=== PATIENT | female | born 1940 | race Caucasian/White ===

== ENCOUNTER 2016-11-01 13:29 | Emergency (ER) | payer MEDICARE, MEDICAID ==
[2016-11-01] MEDS ORDERED: ASPIRIN 81 MG CHEWABLE TABLET PO ONE (14:05)
--- NOTE | 2016-11-01 14:07 | Emergency Department Record ---
History of Present Illness - General Chief Complaint: Chest Pain Stated Complaint: CHEST PAIN WITH DEEP BREATH Time Seen by Provider: 11/01/16 14:04 Source: Patient Mode of Arrival: Ambulatory Limitations: No limitations - History of Present Illness Initial Comments: 76 yo female presents to ED with a CC of chest pain with deep inspiration. Patient reports undergoing pericardial window for pericardial effusion 6-7 weeks ago, denies fevers, chills, or cough symptoms. Patient reports she went to her chiropractor for her symptoms which has not helped. Patient denies h/o DVT, denies leg swelling or calf pain symptoms. MD Complaint: Chest pain Onset/Timin -: Days(s) Onset: Other (deep inspiration) Pain Location: Substernal Pain Radiation: None Severity: Moderate Quality: Other Consistency: Intermittent Worsens With: Inspiration Context: Recent surgery - Related Data Home Medications Medication Instructions Recorded Confirmed Last Taken Fesoterodine Fumarate [Toviaz] 8 mg PO DAILY 08/07/14 09/16/15 09/16/15 Mirabegron [Myrbetriq] 25 mg PO DAILY 08/07/14 09/16/15 09/16/15 Omeprazole 20 mg PO DAILY 08/07/14 09/16/15 09/16/15 Alirocumab [Praluent Pen] 75 mg SQ pen.[email or web address] 06/05/16 Unknown Lisinopril 5 mg PO tab 06/21/16 Unknown Metoprolol Succinate [Toprol Xl] 25 mg PO tab 06/21/16 Unknown Temazepam 7.5 mg PO cap 06/21/16 Unknown Previous Rx's Medication Instructions Recorded Ibuprofen [Motrin 400Mg] 400 mg PO Q8H PRN #14 tablet 09/16/15 Allergies Allergy/AdvReac Type Severity Reaction Status Date / Time adhesive Allergy Intermediate RASH Unverified 06/21/16 13:57 Travel Screening - Travel/Exposure Within Last 30 Days Have you traveled within the last 30 days?: No - Travel/Exposure Within Last Year Have you traveled outside the [place] in the last year?: No - Additonal Travel Details Have you been exposed to anyone with a communicable illness?: No - Travel Symptoms Symptom Screening: None Review of Systems Constitutional: Denies: Chills, Fever, Malaise, Night sweats Eyes: Denies: Eye discharge, Eye pain ENT: Denies: Congestion, Ear pain, Epistaxis Respiratory: Denies: Cough, Dyspnea Cardiovascular: Reports: Chest pain. Denies: Dyspnea on exertion Endocrine: Denies: Fatigue, Heat or cold intolerance Gastrointestinal: Denies: Abdominal pain, Nausea, Vomiting Genitourinary: Denies: Dysuria, Frequency Musculoskeletal: Denies: Arthralgia, Back pain, Gout, Joint swelling Skin: Denies: Bruising, Change in color Neurological: Denies: Abnormal gait, Confusion, Headache, Seizure Psychiatric: Denies: Anxiety Hematological/Lymphatic: Denies: Anemia, Blood Clots Past Medical History - SOCIAL HISTORY Smoking Status: Never smoker Alcohol Use: None Drug Use: None - RESPIRATORY Hx Respiratory Disorders: Yes Hx Dyspnea: Yes (occ. with activity) - CARDIOVASCULAR Hx Cardio Disorders: Yes Comment:: defibulator is not hooked up, EF was <10. Now 69 - NEURO Hx Neuro Disorders: No - GI Hx GI Disorders: No Hx Wt Loss/Wt Gain: Yes Comment:: -15# over the past week - Hx Genitourinary Disorders: Yes Hx Bladder Problem: Yes (Bladder slyng and incont.) - ENDOCRINE Hx Endocrine Disorders: No - MUSCULOSKELETAL Hx Musculoskeletal Disorders: Yes Hx Arthritis: Yes - PSYCH Hx Psych Problems: Yes Hx Depression: Yes - HEMATOLOGY/ONCOLOGY Hx Hematology/Oncology Disorders: No Family Medical History Any Significant Family History?: No Family Hx Comment (NOT TO BE USED IN PLACE OF ITEMS BELOW): mom had gluacoma Physical Exam - General General Appearance: Alert, Oriented x3, Cooperative, Mild distress Limitations: No limitations - Head Head exam: Atraumatic, Normocephalic, Normal inspection Head exam detail: negative: Abrasion, Contusion, Ayala's sign, General tenderness, Hematoma, Laceration - Eye Eye exam: Normal appearance. negative: Conjunctival injection, Periorbital swelling, Periorbital tenderness, Scleral icterus - ENT Ear exam: negative: Auricular hematoma, Auricular trauma Nasal Exam: negative: Active bleeding, Discharge, Dried blood, Foreign body Mouth exam: negative: Drooling, Laceration, Muffled voice, Tongue elevation - Neck Neck exam: Normal inspection. negative: Meningismus, Tenderness - Respiratory Respiratory exam: Normal lung sounds bilaterally. negative: Rales, Respiratory distress, Rhonchi, Stridor, Wheezes - Cardiovascular Cardiovascular Exam: Normal rhythm, Normal heart sounds, Tachycardia - GI/Abdominal GI/Abdominal exam: Soft. negative: Rebound, Rigid, Tenderness - Rectal Rectal exam: Deferred - exam: Deferred - Extremities Extremities exam: Normal inspection. negative: Calf tenderness, Pedal edema, Tenderness - Back Back exam: Denies: CVA tenderness (R), CVA tenderness (L) - Neurological Neurological exam: Alert, Normal gait, Oriented X3 - Psychiatric Psychiatric exam: Normal affect, Normal mood - Skin Skin exam: Normal color. negative: Abrasion Type of lesion: negative: abrasion Course Vital Signs 11/01/16 13:38 Temperature 97.9 F Pulse Rate 118 H Respiratory 18 Rate Blood Pressure 159/76 Pulse Ox 95 - Reevaluation(s) Reevaluation #1: 11/01/16 14:05 EKG: Tachycardic 118, ? Paced vs. LBBB Legft axis deviation No Sgarbossa criteria are present. Appears different from 06/12/15 11/01/16 14:07 Reevaluation #2: 11/01/16 14:10 Bedside US performed, no clear image is available indicating pericardial fluid re-accumulation. Reevaluation #3: 11/01/16 15:07 Labs reviewed, WBC 14.8, labs are otherwise grossly unremarkable for an acute process. Patient is in CT currently to eclude PE/pericardial effusion. Reevaluation #4: 11/01/16 15:46 CTA Chest: No PE, No dissection, no pulmonary process. 1.0 cm anterior pericardial effusion. Reevaluation #5: 11/01/16 15:56 Patient was updated on all results, pulse down to 108 from 118-120. Case was discussed with Dr. Hannah, will accept transfer for cardiac evaluation. Medical Decision Making - Lab Data Result diagrams: 11/01/16 14:20 11/01/16 14:20 Disposition Disposition: Transfer Clinical Impression: Pericardial effusion Disposition: Acute Care Hospital Transfer Transfer To: [facility] Reason For Transfer: Pericardial Effusion Accepting Physician: Brielle Time Discussed w/Accepting Physician: 15:57 Condition: (2) Stable Forms: Patient Portal Access Time of Disposition: 15:57
[2016-11-01] MEDS ORDERED: 0.9 % SODIUM CHLORIDE 1000ML 500 ML IV SCH (14:15)
[2016-11-01 14:24] LABS: BASO % 0.2 % (0-6); EOS % 0.7 % (0-6); GRAN % 79.4 % (47-80); HEMATOCRIT 44.5 % (35.0-47.0); HEMOGLOBIN 14.8 gm/dl (11.6-16.0); LYMPH % 7.4 % (16-45); MEAN CELL VOLUME 84.3 fl (81-97); MEAN CORPUSCULAR HGB CONC 33.3 g/dl (32-36); MEAN PLATELET VOLUME 9.4 fl (7.4-10.4); MONO % 12.3 % (0-9); PLATELET COUNT 172 K/uL (130-400); RED BLOOD COUNT 5.28 M/uL (3.80-5.40); RED CELL DISTRIBUTION WIDTH 12.7 % (11.5-14.5); WHITE BLOOD COUNT W/O DIFF 14.8 K/uL (4.2-12.2)
[2016-11-01 14:36] LABS: ALB/GLOB RATIO 1.2 (1.1-1.8); ALBUMIN 3.8 gm/dL (3.5-5.0); ALKALINE PHOSPHATASE 122 U/L (38-126); ALT/SGPT 27 U/L (9-52); AST/SGOT 20 U/L (14-36); BLOOD UREA NITROGEN 14 mg/dL (7-17); CREATININE 0.8 mg/dL (0.52-1.04); EST GLOMERULAR FILTRATION RATE > 60 ml/min; GLUCOSE,RANDOM 105 mg/dL (70-110); TOTAL PROTEIN 6.9 gm/dL (6.3-8.2)
[2016-11-01 14:48] LABS: CKMB 2.5 ug/L (0-6); TROPONIN I 0.012 ng/mL (0.00-0.034)
[2016-11-01 15:03] LABS: CREATINE PHOSPHOKINASE 54 U/L (30-135)
== END 2016-11-01 17:38 | disposition short-term general hospital (02) ==
LOC: ER 13:29
DX: I31.3 Pericardial effusion (noninflammatory) (principal); Z95.0 Presence of cardiac pacemaker
CPT/HCPCS: 71275; 80053; 82550; 82553; 84484; 85025; 93005; 93010; 99285; J7030

== ENCOUNTER 2016-12-02 11:32 | Emergency (ER) | payer MEDICARE, MEDICAID ==
--- NOTE | 2016-12-02 12:40 | Emergency Department Record ---
History of Present Illness - General Chief Complaint: Shortness of breath Stated Complaint: CHEST DISCOMFORT Time Seen by Provider: 12/02/16 12:37 Source: Patient Mode of Arrival: Ambulatory Limitations: No limitations - History of Present Illness Initial Comments: The patient is here due to feeling SOB this morning for 2-3 hours. The SOB has resolved now. She also was having upper chest and mainly neck pain ONLY when she would breath out but that is improved now. Presently she has no CP, SOB, MALENA , or neck pain. The patient has has similar problems when she had Ecoli sepsis and did have a pericardial effusion 2 months ago that was drained. MD Complaint: Shortness of breath Onset/Timin -: Days(s) Radiation: Neck Consistency: Intermittent Improves With: Nothing Worsens With: Coughing, Other Known History Of: Other Associated Symptoms: Other Treatments Prior to Arrival: None - Related Data Home Medications Medication Instructions Recorded Confirmed Last Taken Fesoterodine Fumarate [Toviaz] 8 mg PO DAILY 08/07/14 12/02/16 09/16/15 Mirabegron [Myrbetriq] 25 mg PO DAILY 08/07/14 12/02/16 09/16/15 Omeprazole 20 mg PO DAILY 08/07/14 12/02/16 09/16/15 Alirocumab [Praluent Pen] 75 mg SQ pen.[email or web address] 06/05/16 Unknown Temazepam 7.5 mg PO DAILY cap 06/21/16 12/02/16 Unknown Minocycline HCl 50 mg PO DAILY #60 11/14/16 12/02/16 Unknown Montelukast Sodium 10 mg PO DAILY #90 11/14/16 12/02/16 Unknown Venlafaxine HCl [Venlafaxine Hcl 37.5 mg PO DAILY 90 Days 12/02/16 12/02/16 Unknown Er] Previous Rx's Medication Instructions Recorded Ibuprofen [Motrin 400Mg] 400 mg PO Q8H PRN #14 tablet 09/16/15 Allergies Allergy/AdvReac Type Severity Reaction Status Date / Time adhesive Allergy Intermediate RASH Unverified 12/02/16 08:18 Travel Screening - Travel/Exposure Within Last 30 Days Have you traveled within the last 30 days?: No Review of Systems Constitutional: Denies: Chills, Fever Eyes: Denies: Eye discharge ENT: Denies: Congestion Respiratory: Reports: Dyspnea. Denies: Cough Past Medical History - SOCIAL HISTORY Smoking Status: Never smoker - RESPIRATORY Hx Respiratory Disorders: Yes Hx Dyspnea: Yes (occ. with activity) - CARDIOVASCULAR Hx Cardio Disorders: Yes Comment:: defibulator is not hooked up, EF was <10. Now 69 - NEURO Hx Neuro Disorders: No - GI Hx GI Disorders: No Hx Wt Loss/Wt Gain: Yes Comment:: -15# over the past week - Hx Genitourinary Disorders: Yes Hx Bladder Problem: Yes (Bladder slyng and incont.) - ENDOCRINE Hx Endocrine Disorders: No - MUSCULOSKELETAL Hx Musculoskeletal Disorders: Yes Hx Arthritis: Yes - PSYCH Hx Psych Problems: Yes Hx Depression: Yes - HEMATOLOGY/ONCOLOGY Hx Hematology/Oncology Disorders: No Family Medical History Any Significant Family History?: Yes Family Hx Comment (NOT TO BE USED IN PLACE OF ITEMS BELOW): mom had gluacoma Physical Exam - General General Appearance: Alert, Oriented x3, Cooperative, No acute distress - Head Head exam: Atraumatic, Normocephalic, Normal inspection - Eye Eye exam: Normal appearance, PERRL - ENT Throat exam: Normal inspection. negative: Tonsillar erythema, Tonsillar exudate - Neck Neck exam: Normal inspection, Full ROM, Tenderness (There is mild bilateral anterior neck tenderness to palpation which EXACTLY reproduces the neck pain.) - Respiratory Respiratory exam: Normal lung sounds bilaterally. negative: Respiratory distress, Rhonchi, Stridor, Wheezes - Cardiovascular Cardiovascular Exam: Regular rate, Normal rhythm, Normal heart sounds - GI/Abdominal GI/Abdominal exam: Soft, Normal bowel sounds. negative: Tenderness - Extremities Extremities exam: Normal inspection, Full ROM, Normal capillary refill. negative: Tenderness - Neurological Neurological exam: Alert, Normal gait. negative: Abnormal gait, Motor sensory deficit Course Vital Signs 12/02/16 11:36 Temperature 98.6 F Pulse Rate 89 Respiratory 20 Rate Blood Pressure 126/81 Pulse Ox 97 - Reevaluation(s) Reevaluation #1: The patient is resting comfortably with no CP or MALENA. She does still have very minor upper chest and neck discomfort ONLY with exhaling. She is lying curled up in a ball on the bed looking at the hospital phone we gave her to use. She also did have a neg PE study one month ago. I strongly doubt any serious cardiac or pulmonary problem at this time and strongly doubt that the patient could have a PE due to her lack of symptoms and no respiratory issues. We will check a 2nd set of cardiac enzymes and will discharge the patient if neg. 12/02/16 13:58 12/02/16 14:38 Reevaluation #2: The patient is doing well at this time. She is up walking with no CP, MALENA, or SOB. She is still having mild neck pain with palpation but she is smiling and joking around and is ready for home. Her RA biox is 98% presently. 12/02/16 14:38 12/02/16 16:04 Medical Decision Making - Data Complexity MDM Data: Labs Ordered and/or Reviewed, X-Ray Ordered and/or Reviewed, EKG Ordered and/or Reviewed - EKG Data -: EKG Interpreted by Me EKG: No Acute Changes, Unchanged From Previous - Radiology Data Radiology results: Report reviewed (CXR: No acute changes.) Disposition Disposition: Discharge Clinical Impression: Atypical chest pain Disposition: Home, Self-Care Condition: (1) Good Instructions: Dyspnea (ED) Additional Instructions: Please continue your regular medicines. Use Tylenol for pain. Please see your PCP for recheck tomorrow as planned. Return to the ER for any increased pain, shortness of breath or fever. Forms: Patient Portal Access Time of Disposition: 14:47
[2016-12-02 13:03] LABS: CREATINE PHOSPHOKINASE 31 U/L (30-135)
[2016-12-02 13:16] LABS: CKMB 1.2 ug/L (0-6)
[2016-12-02 13:17] LABS: TROPONIN I < 0.012 ng/mL (0.00-0.034)
[2016-12-02] MEDS ORDERED: ACETAMINOPHEN 325 MG TAB PO ONE (13:25)
[2016-12-02 14:07] LABS: TROPONIN I < 0.012 ng/mL (0.00-0.034)
[2016-12-02 14:25] LABS: CKMB 1.2 ug/L (0-6)
[2016-12-02 15:04] LABS: URINE APPEARANCE CLEAR; URINE BILIRUBIN NEGATIVE (NEGATIVE); URINE BLOOD TRACE-I (NEGATIVE); URINE COLOR YELLOW; URINE GLUCOSE (UA) NEGATIVE (NEGATIVE); URINE KETONE NEGATIVE (NEGATIVE); URINE LEUKOCYTE ESTERASE NEGATIVE (NEGATIVE); URINE NITRITE NEGATIVE (NEGATIVE); URINE PROTEIN NEGATIVE (NEGATIVE); URINE UROBILINOGEN 0.2 E.U./dL (0.20 - 1.00)
[2016-12-02 15:13] LABS: URINE BACTERIA FEW; URINE SQUAMOUS EPITHELIAL CELL 0 - 2 /hpf; URINE WBC 0 - 2 (0-2/hpf)
--- NOTE | 2016-12-02 16:45 | Emergency Department Record ---
History of Present Illness - General Chief Complaint: Shortness of breath Stated Complaint: CHEST DISCOMFORT Time Seen by Provider: 12/02/16 12:37 Source: Patient Mode of Arrival: Ambulatory Limitations: No limitations - History of Present Illness Initial Comments: Additional hx: The patient has had no leg swelling, thigh or calf pain, or recent travel. She was sent over to [facility] [place] one month ago for a cardiac evaluation that she states was negative. Onset/Timin -: Days(s) Radiation: Neck Consistency: Intermittent Improves With: Nothing Worsens With: Coughing, Other Known History Of: Other Associated Symptoms: Other Treatments Prior to Arrival: None - Related Data Home Medications Medication Instructions Recorded Confirmed Last Taken Fesoterodine Fumarate [Toviaz] 8 mg PO DAILY 08/07/14 12/02/16 09/16/15 Mirabegron [Myrbetriq] 25 mg PO DAILY 08/07/14 12/02/16 09/16/15 Omeprazole 20 mg PO DAILY 08/07/14 12/02/16 09/16/15 Alirocumab [Praluent Pen] 75 mg SQ pen.[email or web address] 06/05/16 Unknown Temazepam 7.5 mg PO DAILY cap 06/21/16 12/02/16 Unknown Minocycline HCl 50 mg PO DAILY #60 11/14/16 12/02/16 Unknown Montelukast Sodium 10 mg PO DAILY #90 11/14/16 12/02/16 Unknown Venlafaxine HCl [Venlafaxine Hcl 37.5 mg PO DAILY 90 Days 12/02/16 12/02/16 Unknown Er] Previous Rx's Medication Instructions Recorded Ibuprofen [Motrin 400Mg] 400 mg PO Q8H PRN #14 tablet 09/16/15 Allergies Allergy/AdvReac Type Severity Reaction Status Date / Time adhesive Allergy Intermediate RASH Unverified 12/02/16 08:18 Travel Screening - Travel/Exposure Within Last 30 Days Have you traveled within the last 30 days?: No Review of Systems Constitutional: Denies: Chills, Fever Eyes: Denies: Eye discharge ENT: Denies: Congestion Respiratory: Reports: Dyspnea. Denies: Cough Past Medical History - SOCIAL HISTORY Smoking Status: Never smoker - RESPIRATORY Hx Respiratory Disorders: Yes Hx Dyspnea: Yes (occ. with activity) - CARDIOVASCULAR Hx Cardio Disorders: Yes Comment:: defibulator is not hooked up, EF was <10. Now 69 - NEURO Hx Neuro Disorders: No - GI Hx GI Disorders: No Hx Wt Loss/Wt Gain: Yes Comment:: -15# over the past week - Hx Genitourinary Disorders: Yes Hx Bladder Problem: Yes (Bladder slyng and incont.) - ENDOCRINE Hx Endocrine Disorders: No - MUSCULOSKELETAL Hx Musculoskeletal Disorders: Yes Hx Arthritis: Yes - PSYCH Hx Psych Problems: Yes Hx Depression: Yes - HEMATOLOGY/ONCOLOGY Hx Hematology/Oncology Disorders: No Family Medical History Any Significant Family History?: Yes Family Hx Comment (NOT TO BE USED IN PLACE OF ITEMS BELOW): mom had gluacoma Physical Exam - General Limitations: No limitations Course Vital Signs 12/02/16 12/02/16 11:36 15:19 Temperature 98.6 F 97.9 F Pulse Rate 89 85 Respiratory 20 18 Rate Blood Pressure 126/81 108/71 Pulse Ox 97 95 Medical Decision Making - Lab Data Lab Results 12/02/16 12/02/16 12/02/16 Range/Units 10:08 13:35 15:05 Creatine Kinase 31 (30-135) U/L CK-MB (CK-2) 1.2 1.2 (0-6) ug/L Troponin I < 0.012 < 0.012 (0.00-0.034) ng/mL Urine Color Yellow Urine Appearance Clear Urine pH 6.5 (5.0-8.0) Ur Specific Calhoun <= 1.005 (1.002-1.030) Urine Protein Negative (NEGATIVE) Urine Glucose (UA) Negative (NEGATIVE) Urine Ketones Negative (NEGATIVE) Urine Blood Trace-i (NEGATIVE) Urine Nitrite Negative (NEGATIVE) Urine Bilirubin Negative (NEGATIVE) Urine Urobilinogen 0.2 (0.20 - 1.00) E.U./dL Ur Leukocyte Esterase Negative (NEGATIVE) Urine RBC 3 - 6 (NONE SEEN) Urine WBC 0 - 2 (0-2/hpf) U Non-Squamous Epi Cells 0 - 2 /hpf Urine Bacteria Few Disposition Clinical Impression: Atypical chest pain Disposition: Home, Self-Care Condition: (1) Good Instructions: Dyspnea (ED) Additional Instructions: Please continue your regular medicines. Use Tylenol for pain. Please see your PCP for recheck tomorrow as planned. Return to the ER for any increased pain, shortness of breath or fever. Forms: Patient Portal Access
== END 2016-12-02 15:21 | disposition home or self-care (01) ==
LOC: ER 11:32
DX: R07.89 Other chest pain (principal); R53.83 Other fatigue; R06.02 Shortness of breath; M54.2 Cervicalgia
CPT/HCPCS: 71020; 80053; 81001; 82550; 82553; 84484; 85025; 93005; 93010; 99284

== ENCOUNTER 2017-04-21 19:02 | Inpatient (IN) | payer MEDICARE, MEDICAID ==
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
[2017-04-21 19:40] LABS: BASO % 0.2 % (0-6); HEMATOCRIT 42.5 % (35.0-47.0); HEMOGLOBIN 14.2 gm/dl (11.6-16.0); LYMPH % 2.8 % (16-45); MEAN CELL VOLUME 80.5 fl (81-97); MEAN CORPUSCULAR HEMOGLOBIN 26.9 pg (27-33); MEAN CORPUSCULAR HGB CONC 33.4 g/dl (32-36); MEAN PLATELET VOLUME 10.4 fl (7.4-10.4); MONO % 7.2 % (0-9); RED BLOOD COUNT 5.28 M/uL (3.80-5.40); RED CELL DISTRIBUTION WIDTH 14.7 % (11.5-14.5); WHITE BLOOD COUNT W/O DIFF 12.1 K/uL (4.2-12.2)
[2017-04-21 19:58] LABS: PLATELET COUNT 97 K/uL (130-400)
[2017-04-21 20:02] LABS: ALB/GLOB RATIO 0.9 (1.1-1.8); ALBUMIN 3.2 g/dL (4.0-5.0); ALKALINE PHOSPHATASE 102 U/L (35-104); ALT/SGPT 13 U/L (<33); AST/SGOT 26 U/L (10.0-35.0); BLOOD UREA NITROGEN 37 mg/dL (8-23); CREATININE 1.6 mg/dL (0.5-0.9); EST GLOMERULAR FILTRATION RATE 33 mL/min; GLUCOSE,RANDOM 126 mg/dL (74-109); TOTAL PROTEIN 6.6 g/dL (6.6-8.7)
[2017-04-21 20:06] LABS: ACETAMINOPHEN < 5.0 ug/mL (10.0-30.0); SALICYLATE < 0.3 mg/dL (2.8-20); TROPONIN I < 0.30 ng/mL (0.00-0.300)
[2017-04-21 20:09] LABS: THYROID STIMULATING HORMONE 1.02 uIU/mL (0.270-4.20)
[2017-04-21 20:16] LABS: AMMONIA 15 umol/L (11.0-51.0)
[2017-04-21 22:02] LABS: URINE APPEARANCE CLEAR; URINE BILIRUBIN SMALL (NEGATIVE); URINE BLOOD MODERATE (NEGATIVE); URINE COLOR YELLOW; URINE GLUCOSE (UA) NEGATIVE (NEGATIVE); URINE KETONE TRACE (NEGATIVE); URINE LEUKOCYTE ESTERASE TRACE (NEGATIVE); URINE NITRITE NEGATIVE (NEGATIVE); URINE UROBILINOGEN 0.2 E.U./dL (0.20 - 1.00)
[2017-04-21 22:09] LABS: URINE BACTERIA FEW; URINE EPITHELIAL CELLS 0 - 2 (FEW)
[2017-04-21 22:12] LABS: AMPHETAMINE SCREEN URINE NOT DETECTED; BARBITURATE SCREEN URINE NOT DETECTED; BENZODIAZEPINE SCREEN URINE DETECTED; COCAINE SCREEN URINE NOT DETECTED; METHADONE SCREEN URINE NOT DETECTED; METHAMPHETAMINE SCREEN NOT DETECTED; OPIATE SCREEN URINE NOT DETECTED; OXYCODONE SCREEN URINE NOT DETECTED; PHENCYCLIDINE SCREEN URINE NOT DETECTED; PROPOXYPHENE SCREEN URINE NOT DETECTED; THC SCREEN URINE NOT DETECTED; TRICYCLIC ANTIDEPRESSANT SCRN NOT DETECTED
[2017-04-21] MEDS ORDERED: 0.9 % SODIUM CHLORIDE 1000ML 500 ML IV SCH (22:15)
[2017-04-21] MEDS ORDERED: CEFTRIAXONE SODIUM 1 GM in 0.9 % SODIUM CHLORIDE 100ML 100 ML IVPB ONE (22:21)
[2017-04-21] MEDS ORDERED: TEMAZEPAM 15 MG CAPSULE PO SCH (23:04)
[2017-04-21] MEDS ORDERED: VENLAFAXINE ER 37.5 MG CAPSULE PO SCH (23:04)
[2017-04-21] MEDS: 0.9 % SODIUM CHLORIDE 1000ML 1,000 ML IV PRN (23:40)
[2017-04-22] MEDS ORDERED: FLU VAC QS 2017-18 (INPT, 6MO+) 60MCG/0.5ML IM ONE (00:56)
[2017-04-22 06:40] LABS: BASO % 0.1 % (0-6); EOS % 0.5 % (0-6); HEMATOCRIT 40.8 % (35.0-47.0); HEMOGLOBIN 13.5 gm/dl (11.6-16.0); LYMPH % 4.3 % (16-45); MEAN CELL VOLUME 80.8 fl (81-97); MEAN CORPUSCULAR HEMOGLOBIN 26.7 pg (27-33); MEAN CORPUSCULAR HGB CONC 33.1 g/dl (32-36); MEAN PLATELET VOLUME 11.3 fl (7.4-10.4); PLATELET COUNT 54 K/uL (130-400); RED BLOOD COUNT 5.05 M/uL (3.80-5.40); RED CELL DISTRIBUTION WIDTH 14.8 % (11.5-14.5); WHITE BLOOD COUNT W/O DIFF 8.8 K/uL (4.2-12.2)
[2017-04-22] MEDS: PANTOPRAZOLE SODIUM 40 MG TABLET PO SCH (06:59)
[2017-04-22] MEDS: ACETAMINOPHEN 500 MG TABLET PO PRN (07:37)
[2017-04-22] MEDS: 0.9 % SODIUM CHLORIDE 1000ML 1,000 ML IV PRN ×2 (07:40→18:03)
--- NOTE | 2017-04-22 07:46 | CT SCAN REPORT ---
EXAM: CT SCAN OF THE HEAD WITHOUT CONTRAST HISTORY: PATIENT HAS CONFUSION. TECHNIQUE: Serial axial CT scan of the head was performed at 2.5 mm intervals from the base of the skull to the apex without the use of intravenous contrast. Sagittal and coronal reconstructions are provided. No comparison studies are available. FINDINGS: The ventricles, cisterns, and sulci appear within normal limits for size, shape and attenuation. There is no mass or mass effect. The borrero and white differentiation appear within normal limits. There is no CT evidence of intra or extraaxial fluid collection to suggest bleeding. Bone windows demonstrate no CT evidence of a fracture or dislocation of the skull. The paranasal sinuses are unremarkable. IMPRESSION: NO CT EVIDENCE OF AN ACUTE INTRACRANIAL PROCESS. JOB NUMBER: [id number] MTDD
--- NOTE | 2017-04-22 07:53 | History & Physical ---
History of Present Illness - Date of Service Date of Service for History & Physical: 04/22/17 - History of Present Illness Admitting Diagnosis: Altered Mental Status. Dehydration/OLGA. UTI. Generalized Weakness History of Present Illness: Ms. castrejon is a 77 y/o female who presents after being stopped by the police for erratic driving. The patient says that she was on her way from [place] when she started feeling unwell. She had some changes in her vision and generalized weakness but denied any pain, fever, headache or chills. The patient denies being diabetic, alcohol use, syncope, chest pain, difficulty breathing or recent illness. On arrival to the ED the patient's did show mild derangement as she was mildy hyponatremic, thrombocytopenic with platelets 97 and acute kidney injury Bun/Cr 37/1.6 respectively. UA did show trace elements with urine culture pending. Non- contrast CT head was not suggestive of any acute intracranial process and chest xray was negative for cardiopulmonary process. On examination at bedside this morning the patient appears to be lethargic, but is able answer questions appropriately. Travel Screening - Travel/Exposure Within Last 30 Days Have you traveled within the last 30 days?: No - Travel/Exposure Within Last Year Have you traveled outside the [place] in the last year?: No - Additonal Travel Details Have you been exposed to anyone with a communicable illness?: No - Travel Symptoms Symptom Screening: Weakness, Lack of Appetite Review of Systems Constitutional: Reports: Fever (temp 100 this am), Weakness. Denies: Chills, Malaise, Night sweats Eyes: Denies: Eye discharge, Eye pain ENT: Denies: Congestion, Ear pain, Epistaxis Respiratory: Denies: Cough, Dyspnea Cardiovascular: Denies: Chest pain, Dyspnea on exertion Endocrine: Denies: Fatigue, Heat or cold intolerance Gastrointestinal: Denies: Abdominal pain, Nausea, Vomiting Genitourinary: Denies: Incontinence, Retention Musculoskeletal: Denies: Arthralgia, Back pain, Gout, Joint swelling Skin: Denies: Bruising, Change in color Neurological: Reports: Confusion. Denies: Abnormal gait, Headache, Seizure Psychiatric: Denies: Anxiety Hematological/Lymphatic: Denies: Anemia, Blood Clots Past Medical History - SOCIAL HISTORY Smoking Status: Never smoker Alcohol Use: None Drug Use: None - RESPIRATORY Hx Respiratory Disorders: Yes Hx Dyspnea: Yes (occ. with activity) - CARDIOVASCULAR Hx Cardio Disorders: Yes Hx Irregular Heartbeat: Yes Hx Pacemaker/Defib: Yes Comment:: defibulator is not hooked up, EF was <10. Now 70 - NEURO Hx Neuro Disorders: No - GI Hx GI Disorders: No Hx Wt Loss/Wt Gain: Yes Comment:: -15# over the past week - Hx Genitourinary Disorders: Yes Hx Bladder Problem: Yes (Bladder slyng and incont.) Hx UTI: Yes - ENDOCRINE Hx Endocrine Disorders: No - MUSCULOSKELETAL Hx Musculoskeletal Disorders: Yes Hx Arthritis: Yes - PSYCH Hx Psych Problems: Yes Hx Depression: Yes (currently on antidepressants ) - HEMATOLOGY/ONCOLOGY Hx Hematology/Oncology Disorders: No Family Medical History Any Significant Family History?: No Family Hx Comment (NOT TO BE USED IN PLACE OF ITEMS BELOW): mom had glaucoma H&P Meds/Allergies - Allergies Allergies: Allergies Allergy/AdvReac Type Severity Reaction Status Date / Time adhesive Allergy Intermediate RASH Unverified 01/01/17 10:28 - Home Medications Home Medications Medication Instructions Recorded Confirmed Last Taken Temazepam 30 mg PO QHS 04/22/17 04/22/17 Unknown Previous Rx's Medication Instructions Recorded Ibuprofen [Motrin 400Mg] 400 mg PO Q8H PRN #14 tablet 09/16/15 - Active Medications Active Medications: Current Medications Acetaminophen (Tylenol 500mg Tab) 1,000 mg PO Q6H PRN PRN Reason: PAIN/TEMP Last Admin: 04/22/17 07:37 Dose: 1,000 mg Sodium Chloride () 1,000 mls @ 125 mls/hr IV .Q8H PRN PRN Reason: LARGE VOLUME IV Last Admin: 04/22/17 07:40 Dose: 125 mls/hr Montelukast Sodium (Singulair) 10 mg PO DAILY [facility] Non-Formulary Medication (Fesoterodine Fumarate [Toviaz]) 8 mg PO DAILY [facility] Pantoprazole Sodium (Protonix) 40 mg PO DAILYAC [facility] Last Admin: 04/22/17 06:59 Dose: 40 mg Temazepam (Restoril) 30 mg PO QD [facility] Last Admin: 04/22/17 00:04 Dose: 30 mg Venlafaxine HCl (Effexor Xr) 37.5 mg PO QD [facility] Last Admin: 04/22/17 00:05 Dose: 37.5 mg Physical Exam - Vital Signs Vital Signs: Vital Signs - Last 24 Hrs Temp Pulse Pulse Resp BP BP Pulse Ox 04/22/17 06:20 100.0 F H 108 H 18 125/70 91 L 04/21/17 23:04 98.5 F 103 H 20 108/67 91 L 04/21/17 22:57 102 H 24 129/66 92 L - General General Appearance: Alert, Oriented x3, Cooperative, No acute distress, Other ( appears ome lethargic with halting ) Limitations: Other (answers questions with nonspecific answers) - Head Head exam: Atraumatic, Normocephalic, Normal inspection Head exam detail: negative: Abrasion, Contusion, Ayala's sign, General tenderness, Hematoma, Laceration - Eye Eye exam: Normal appearance, PERRL. negative: Conjunctival injection, Periorbital swelling, Periorbital tenderness, Scleral icterus - ENT Ear exam: negative: Auricular hematoma, Auricular trauma Nasal Exam: negative: Active bleeding, Discharge, Dried blood, Foreign body Mouth exam: Other (dry oral mucosa). negative: Drooling, Laceration, Muffled voice, Tongue elevation Throat exam: Normal inspection - Neck Neck exam: Normal inspection. negative: Meningismus, Tenderness - Respiratory Respiratory exam: Normal lung sounds bilaterally. negative: Accessory muscle use, Rales, Respiratory distress, Rhonchi, Stridor - Cardiovascular Cardiovascular Exam: Regular rate, Normal rhythm, Normal heart sounds. negative : JVD Peripheral Pulses: 2+: Radial (R), Radial (L) - GI/Abdominal GI/Abdominal exam: Soft. negative: Diminished bowel sounds, Distended, Hypoactive bowel sounds, Rebound, Tenderness - Rectal Rectal exam: Deferred - exam: Deferred - Extremities Extremities exam: Normal inspection. negative: Calf tenderness, Pedal edema, Tenderness - Back Back exam: Denies: CVA tenderness (R), CVA tenderness (L) - Neurological Neurological exam: Alert, CN II-XII intact. negative: Motor sensory deficit - Psychiatric Psychiatric exam: Normal affect, Normal mood - Skin Skin exam: Normal color, Warm. negative: Abrasion Type of lesion: negative: abrasion Results - Labs Result Diagrams: 04/22/17 06:10 04/21/17 19:30 Labs Last 24 Hours: Laboratory Results - last 24 hr 04/22/17 06:10 WBC 8.8 RBC 5.05 Hgb 13.5 Hct 40.8 MCV 80.8 L MCH 26.7 L MCHC 33.1 RDW 14.8 H Plt Count 54 L MPV 11.3 H Neutrophils % 85.0 H Band Neutrophils % 0.0 Lymphocytes % 4.3 L Monocytes % 10.0 H Eosinophils % 0.5 Basophils % 0.1 Lymphocytes 4.0 L Monocytes 11.0 H Basophils 0.0 Eosinophil Count 0.0 VTE H&P Assessment - Risk for VTE Risk for VTE: No Risk Level: Low Risk Assessment Date: 04/22/17 Risk Assessment Time: 08:46 VTE Orders Placed or Will Be Placed: No VTE Reason for No Prophylaxis: Contraindicated (pts platelets dropping) - VTE Confirmation VTE Confirmed w/Diagnostic Imaging Test: No Plan - Inpatient Certification Inpatient Certification: Admit to inpatient care: Based on my medical assessment, after consideration of patient's risk factors (age, co-morbidities and patient presenting symptoms and acuity), I expect that this patient will remain in the hospital greater than or equal to two midnights and that the services needed warrant inpatient care because: Working diagnosis of sepsis w/ unknown source. Estimated length of stay: 72 hours The patient may reasonably be expected to be discharged or transferred to a hospital within 96 hours after admission to [facility]. I certify that my determination is in accordance with my understanding of Medicare requirements for reasonable and necessary inpatient services. 04/22/17 08:46 - Detailed Diagnosis and Plan (1) Sepsis Plan: - fever, tachycardia, elevated WBCs, trace leukocyte esterase, wbc 10-15 - CXR - negative, CT head negative, UDS negative - urine cultures, blood cultures pending, influenza A/B rapid ordered. - started patient on: Ceftriaxone 2gm Q12H, Vancomycin pharmacy dosing, Tylenol PRN - continue fluids Nacl 0.9% @ 125mL/hr, repeat am labs. - telemetry monitoring, CBG-POC Q12H, I/Os Current Visit: Yes Status: Acute Base Code: A41.9 - SEPSIS, UNSPECIFIED ORGANISM (2) Altered mental status Plan: - likely multifactorial, due to sepsis, medication, dehydration, hyponatremia. - pt is alert and oriented x 3 presently. Will continue treat as per sepsis guidelines. - resume Effexor home dose, hold all other sedative hypnotics. - neurochecks Q8H, fall/aspiration precautions Current Visit: Yes Status: Acute Qualifiers: Altered mental status type: unspecified Qualified Code(s): R41.82 - Altered mental status, unspecified Base Code: R41.82 - ALTERED MENTAL STATUS, UNSPECIFIED (3) Hyponatremia Plan: - likely as a result of hypovolemia due to sepsis or medication. - Na 133 on admission. Repeat am labs ordered - replete Na at a rate 6-8 meq/L per hr over the next 24 hours. Current Visit: Yes Status: Acute Base Code: E87.1 - HYPO-OSMOLALITY AND HYPONATREMIA (4) OLGA (acute kidney injury) Plan: - likely pre-prerenal, Bun/Cr 37/1.6, baseline Cr 1.0 - replete fluids, continue to trend and avoid nephrotoxic agents. Current Visit: Yes Status: Acute Base Code: N17.9 - ACUTE KIDNEY FAILURE, UNSPECIFIED (5) Thrombocytopenia Plan: - thrombocytopenia: plts 97 --> 54 - ordered LFTs, Coags and Fibrinogen - no active bleeding identified. Cont holding anticoagulants until resolved. - transfuse plts if drop <30k - int compression stalkings/ambulation as tolerated. Current Visit: Yes Status: Acute Base Code: D69.6 - THROMBOCYTOPENIA, UNSPECIFIED (6) Thrombocytopenia Current Visit: Yes Status: Acute Base Code: D69.6 - THROMBOCYTOPENIA, UNSPECIFIED (7) UTI (urinary tract infection) Plan: - UA: trace leukocytes, wbc 10-15, proteinuria, negative nitrites. - UCX pending, cont Ceftriaxone 2gm Q12H - pt uses adult diapers for incontinence, daily changes as per nursing. - hold Toviaz for now Current Visit: Yes Status: Acute Qualifiers: Urinary tract infection type: acute cystitis Hematuria presence: with hematuria Qualified Code(s): N30.01 - Acute cystitis with hematuria Base Code: N39.0 - URINARY TRACT INFECTION, SITE NOT SPECIFIED (8) Urinary incontinence Plan: - pt taking fesoterodine QD for urge incontinence. Will hold for now. Current Visit: Yes Status: Acute Base Code: R32 - UNSPECIFIED URINARY INCONTINENCE (9) Full code status Plan: FULL CODE Current Visit: Yes Status: Acute Base Code: Z78.9 - OTHER SPECIFIED HEALTH STATUS - Disposition The patient's working diagnosis at this time is sepsis amongst other things. Workup includes pending labs and continued broad spectrum abx. No anticipated d/ c considered currently.
--- NOTE | 2017-04-22 07:53 | RADIOLOGY REPORT ---
EXAM: AP CHEST HISTORY: PATIENT HAS CONFUSION. TECHNIQUE: A single AP portable view of the chest was provided along with a comparison study dated 01/01/17. FINDINGS: Mild cardiomegaly is noted. The holli appear unremarkable. Left anterior chest wall pacemaker is unchanged with respect to the prior examination. There is no radiographic evidence of a focal infiltrate, pleural effusion, or pneumothorax. IMPRESSION: STABLE RADIOGRAPHIC APPEARANCE OF THE CHEST WITH RESPECT TO THE PRIOR EXAMINATION. JOB NUMBER: [id number] [facility]
[2017-04-22] MEDS ORDERED: VANCOMYCIN HCL 1,000 MG in 0.9 % SODIUM CHLORIDE 250ML 250 ML IVPB ONE (08:12)
[2017-04-22] MEDS ORDERED: CEFTRIAXONE SODIUM 2 GM in 0.9 % SODIUM CHLORIDE 100ML 100 ML IVPB SCH (08:15)
[2017-04-22 08:41] LABS: ALKALINE PHOSPHATASE 93 U/L (35-104); ALT/SGPT 12 U/L (<33); AST/SGOT 22 U/L (10.0-35.0); BILIRUBIN,DIRECT < 0.2 mg/dL (0-0.3)
[2017-04-22 09:07] LABS: INFLUENZA A NEGATIVE (NEGATIVE); INFLUENZA B NEGATIVE (NEGATIVE)
[2017-04-22] MEDS ORDERED: Non-Formulary MISC (Omeprazole [Prilosec] 20 MG) PO SCH (10:00)
[2017-04-22] MEDS ORDERED: MONTELUKAST SODIUM 10MG TABLET PO SCH (10:00)
[2017-04-22] MEDS ORDERED: FESOTERODINE FUMARATE 8 MG PO SCH (10:00)
[2017-04-22] MEDS: CEFTRIAXONE SODIUM 2 GM in 0.9 % SODIUM CHLORIDE 100ML 100 ML IVPB SCH (22:57)
[2017-04-22] MEDS: TEMAZEPAM 15 MG CAPSULE PO SCH (23:06)
[2017-04-23] MEDS: ACETAMINOPHEN 500 MG TABLET PO PRN ×2 (02:56→22:23)
[2017-04-23] MEDS ORDERED: 0.9 % SODIUM CHLORIDE 1,000 ML BAG IV ONE (03:12)
[2017-04-23] MEDS ORDERED: ALBUTEROL SULFATE (0.083%) 2.5 MG/3 ML NEB INH ONE ×2 (03:12→12:43)
[2017-04-23] MEDS: 0.9 % SODIUM CHLORIDE 1000ML 1,000 ML IV PRN ×2 (06:25→22:22)
--- NOTE | 2017-04-23 06:31 | Physician Progress Note ---
Subjective - Date Date of Physician Progress Note: 04/23/17 - Subjective Subjective Comment: Patient is AOx3 this morning on bedside examination. She says she is really tired and didn't really get a lot of sleep last evening. Objective - Vital Signs Vital Signs: Vital Signs - Last 24 Hrs Temp Pulse Pulse Resp BP BP Pulse Ox 04/23/17 05:30 98.5 F 97 H 26 H 124/69 92 L 04/23/17 03:30 98.7 F 04/23/17 03:16 120 H 32 H 04/23/17 02:45 100.4 F H 121 H 32 H 136/74 92 L 04/22/17 20:30 97.5 F L 68 18 128/75 96 04/22/17 14:00 97.8 F 63 18 83/44 94 L 04/22/17 09:00 12 - General General Appearance: Alert, Oriented x3, Cooperative, No acute distress, Other ( appears ome lethargic with halting ) Limitations: Other (answers questions with nonspecific answers) - Head Head exam: Atraumatic, Normocephalic, Normal inspection Head exam detail: negative: Abrasion, Contusion, Ayala's sign, General tenderness, Hematoma, Laceration - Eye Eye exam: Normal appearance, PERRL. negative: Conjunctival injection, Periorbital swelling, Periorbital tenderness, Scleral icterus - ENT Ear exam: negative: Auricular hematoma, Auricular trauma Nasal Exam: negative: Active bleeding, Discharge, Dried blood, Foreign body Mouth exam: Other (dry oral mucosa). negative: Drooling, Laceration, Muffled voice, Tongue elevation Throat exam: Normal inspection - Neck Neck exam: Normal inspection. negative: Meningismus, Tenderness - Respiratory Respiratory exam: Normal lung sounds bilaterally. negative: Accessory muscle use, Rales, Respiratory distress, Rhonchi, Stridor - Cardiovascular Cardiovascular Exam: Regular rate, Normal rhythm, Normal heart sounds. negative : JVD Peripheral Pulses: 2+: Radial (R), Radial (L) - GI/Abdominal GI/Abdominal exam: Soft. negative: Diminished bowel sounds, Distended, Hypoactive bowel sounds, Rebound, Tenderness - Rectal Rectal exam: Deferred - exam: Deferred - Extremities Extremities exam: Normal inspection. negative: Calf tenderness, Pedal edema, Tenderness - Back Back exam: Denies: CVA tenderness (R), CVA tenderness (L) - Neurological Neurological exam: Alert, CN II-XII intact. negative: Motor sensory deficit - Psychiatric Psychiatric exam: Normal affect, Normal mood - Skin Skin exam: Normal color, Warm. negative: Abrasion Type of lesion: negative: abrasion Assessment and Plan - Assessment and Plan (1) Sepsis Plan: - pt was febrile and tachycardic last night, elevated WBCs, trace leukocyte esterase, wbc 10-15 - CXR - negative, CT head negative, UDS negative - urine cultures pending, blood cultures negative x 1 day, influenza A/B rapid negative - started patient on: Ceftriaxone 2gm Q12H, Vancomycin pharmacy dosing to be d/ c, Tylenol PRN - continue fluids Nacl 0.9% @ 125mL/hr, got 1 liter bolus last night around 3 am. - telemetry monitoring, CBG-POC Q12H, I/Os Current Visit: Yes Status: Acute Base Code: A41.9 - SEPSIS, UNSPECIFIED ORGANISM (2) UTI (urinary tract infection) Plan: - pt on Vancomycin/Ceftriaxone IV - will d/c Vancomycin today. Current Visit: Yes Status: Acute Qualifiers: Urinary tract infection type: acute cystitis Hematuria presence: with hematuria Qualified Code(s): N30.01 - Acute cystitis with hematuria Base Code: N39.0 - URINARY TRACT INFECTION, SITE NOT SPECIFIED (3) Hyponatremia Plan: - likely as a result of hypovolemia due to sepsis or medication. - Na 133 --> 139, cont to follow labs. Cont Iv fluid repletion Current Visit: Yes Status: Acute Base Code: E87.1 - HYPO-OSMOLALITY AND HYPONATREMIA (4) Thrombocytopenia Plan: - plts 97 --> 54 --> 41 - fibrinogen 438, PT/INR 05/21.02, awaiting PBS - no active bleeding and no other etiologies identified. - will repeat am labs and transfuse platelets if <30k or active bleeding. - cont to hold antiplatelet and anticoagulation Current Visit: Yes Status: Acute Base Code: D69.6 - THROMBOCYTOPENIA, UNSPECIFIED (5) Full code status Plan: FULL CODE Current Visit: Yes Status: Acute Base Code: Z78.9 - OTHER SPECIFIED HEALTH STATUS - Disposition Disposition: Patient had fever spike and was tachycardic last night. Tylenol, 1 liter bolus given and improved. Plts dropped to 41 this am. PBS still pending. Results - Labs Result Diagrams: 04/23/17 06:17 04/23/17 06:17 Labs Last 24 Hours: Laboratory Results - last 24 hr 04/22/17 04/22/17 04/22/17 06:00 06:10 07:52 WBC 8.8 RBC 5.05 Hgb 13.5 Hct 40.8 MCV 80.8 L MCH 26.7 L MCHC 33.1 RDW 14.8 H Plt Count 54 L MPV 11.3 H Neutrophils % 85.0 H Band Neutrophils % 0.0 Lymphocytes % 4.3 L Monocytes % 10.0 H Eosinophils % 0.5 Basophils % 0.1 Lymphocytes 4.0 L Monocytes 11.0 H Basophils 0.0 Eosinophil Count 0.0 APTT Fibrinogen Cancelled Lupus Anticoagulant Cancelled Protein C Activity Cancelled APC - PTT Baseline Cancelled Protein S Activity Cancelled Antithrombin III Activ Cancelled Factor V Leiden Cancelled POC Glucose Total Bilirubin 0.70 Direct Bilirubin < 0.2 AST 22 ALT 12 Alkaline Phosphatase 93 Total Protein 6.0 L Albumin 3.0 L Homocysteine Cancelled Anti-Cardiolipin IgG Ab Cancelled Anti-Cardiolipin IgM Ab Cancelled Cardiolipin Ab Comment Cancelled Influenza Type A Ag Influenza Type B Ag Prothrombin [id number] Mut Cancelled 04/22/17 04/22/17 04/22/17 08:43 08:43 16:30 WBC RBC Hgb Hct MCV MCH MCHC RDW Plt Count MPV Neutrophils % Band Neutrophils % Lymphocytes % Monocytes % Eosinophils % Basophils % Lymphocytes Monocytes Basophils Eosinophil Count APTT 36.20 Fibrinogen Lupus Anticoagulant Protein C Activity APC - PTT Baseline Protein S Activity Antithrombin III Activ Factor V Leiden POC Glucose Cancelled Total Bilirubin Direct Bilirubin AST ALT Alkaline Phosphatase Total Protein Albumin Homocysteine Anti-Cardiolipin IgG Ab Anti-Cardiolipin IgM Ab Cardiolipin Ab Comment Influenza Type A Ag Negative Influenza Type B Ag Negative Prothrombin [id number] Mut 04/22/17 16:49 WBC RBC Hgb Hct MCV MCH MCHC RDW Plt Count MPV Neutrophils % Band Neutrophils % Lymphocytes % Monocytes % Eosinophils % Basophils % Lymphocytes Monocytes Basophils Eosinophil Count APTT Fibrinogen Lupus Anticoagulant Protein C Activity APC - PTT Baseline Protein S Activity Antithrombin III Activ Factor V Leiden POC Glucose 136 H Total Bilirubin Direct Bilirubin AST ALT Alkaline Phosphatase Total Protein Albumin Homocysteine Anti-Cardiolipin IgG Ab Anti-Cardiolipin IgM Ab Cardiolipin Ab Comment Influenza Type A Ag Influenza Type B Ag Prothrombin [id number] Mut DVT/PE Assessment - Risk for VTE Risk for VTE: No Risk Level: Low Risk Assessment Date: 04/22/17 Risk Assessment Time: 08:46 VTE Orders Placed or Will Be Placed: No VTE Reason for No Prophylaxis: Contraindicated (pts platelets dropping) - Active Medicaitons Current Medications: Current Medications Acetaminophen (Tylenol 500mg Tab) 1,000 mg PO Q6H PRN PRN Reason: PAIN/TEMP Last Admin: 04/23/17 02:56 Dose: 1,000 mg Sodium Chloride () 1,000 mls @ 125 mls/hr IV .Q8H PRN PRN Reason: LARGE VOLUME IV Last Admin: 04/23/17 06:25 Dose: 125 mls/hr Ceftriaxone Sodium 2 gm/ (Sodium Chloride) 100 mls @ 200 mls/hr IVPB Q12HR [facility] Stop: 04/27/17 08:16 Last Infusion: 04/23/17 01:14 Dose: Infused Vancomycin HCl 1,000 mg/ (Sodium Chloride) 250 mls @ 250 mls/hr IVPB DAILY [facility] Stop: 04/28/17 10:01 Pantoprazole Sodium (Protonix) 40 mg PO DAILYAC [facility] Last Admin: 04/22/17 06:59 Dose: 40 mg Temazepam (Restoril) 30 mg PO QHS [facility] Last Admin: 04/22/17 23:06 Dose: 30 mg Venlafaxine HCl (Effexor Xr) 37.5 mg PO DAILY [facility] AMI Plan - Labs Result Diagrams: 04/23/17 06:17 04/23/17 06:17
[2017-04-23] MEDS: PANTOPRAZOLE SODIUM 40 MG TABLET PO SCH (07:08)
[2017-04-23 07:09] LABS: HEMATOCRIT 36.9 % (35.0-47.0); MEAN CELL VOLUME 80.2 fl (81-97); MEAN CORPUSCULAR HEMOGLOBIN 26.1 pg (27-33); MEAN CORPUSCULAR HGB CONC 32.5 g/dl (32-36); RED CELL DISTRIBUTION WIDTH 14.8 % (11.5-14.5); WHITE BLOOD COUNT W/O DIFF 7.7 K/uL (4.2-12.2)
[2017-04-23 07:18] LABS: PLATELET COUNT 41 K/uL (130-400)
[2017-04-23 07:23] LABS: PLATELET ESTIMATE DECREASED (NORMAL)
[2017-04-23 07:36] LABS: BLOOD UREA NITROGEN 21 mg/dL (8-23); CREATININE 0.7 mg/dL (0.5-0.9); EST GLOMERULAR FILTRATION RATE > 60 mL/min; GLUCOSE,RANDOM 143 mg/dL (74-109)
[2017-04-23] MEDS ORDERED: POTASSIUM CHLORIDE 20 MEQ TABLET PO ONE (08:29)
[2017-04-23] MEDS ORDERED: POTASSIUM CHL 20MEQ IN 1L NS 20 MEQ/1,000 ML BAG IV ONE (08:31)
[2017-04-23 09:23] LABS: FIBRINOGEN 438.1 mg/dL (157-408); INR 1.02
[2017-04-23] MEDS: VENLAFAXINE ER 37.5 MG CAPSULE PO SCH (09:45)
[2017-04-23] MEDS: CEFTRIAXONE SODIUM 2 GM in 0.9 % SODIUM CHLORIDE 100ML 100 ML IVPB SCH ×2 (09:45→23:38)
[2017-04-23] MEDS ORDERED: VANCOMYCIN HCL 1,000 MG in 0.9 % SODIUM CHLORIDE 250ML 250 ML IVPB SCH (10:00)
[2017-04-23] MEDS: VANCOMYCIN HCL 1,000 MG in 0.9 % SODIUM CHLORIDE 250ML 250 ML IVPB SCH (17:41)
[2017-04-23] MEDS ORDERED: IBUPROFEN 600 MG TABLET PO PRN (17:48)
[2017-04-23] MEDS: ALBUTEROL SULFATE (0.083%) 2.5 MG/3 ML NEB INH PRN (17:57)
[2017-04-23] MEDS: TEMAZEPAM 15 MG CAPSULE PO SCH (22:23)
[2017-04-24] MEDS: VANCOMYCIN HCL 1,000 MG in 0.9 % SODIUM CHLORIDE 250ML 250 ML IVPB SCH ×2 (02:15→09:50)
[2017-04-24] MEDS: PANTOPRAZOLE SODIUM 40 MG TABLET PO SCH (06:53)
[2017-04-24] MEDS: ALBUTEROL SULFATE (0.083%) 2.5 MG/3 ML NEB INH PRN ×3 (07:02→17:08)
--- NOTE | 2017-04-24 08:10 | Physician Progress Note ---
Subjective - Date Date of Physician Progress Note: 04/24/17 Objective - Vital Signs Vital Signs: Vital Signs - Last 24 Hrs Temp Pulse Pulse Pulse Resp BP Pulse Ox 04/24/17 07:33 20 04/24/17 07:05 68 16 100 04/23/17 19:50 98.6 F 64 77 22 141/53 93 L 04/23/17 17:55 85 22 04/23/17 12:48 80 20 98 04/23/17 11:29 98.2 F 84 18 128/74 96 04/23/17 09:00 20 - General General Appearance: Alert, Oriented x3, Cooperative, No acute distress, Other ( appears ome lethargic with halting ) Limitations: Other (answers questions with nonspecific answers) - Head Head exam: Atraumatic, Normocephalic, Normal inspection Head exam detail: negative: Abrasion, Contusion, Ayala's sign, General tenderness, Hematoma, Laceration - Eye Eye exam: Normal appearance, PERRL. negative: Conjunctival injection, Periorbital swelling, Periorbital tenderness, Scleral icterus - ENT Ear exam: negative: Auricular hematoma, Auricular trauma Nasal Exam: negative: Active bleeding, Discharge, Dried blood, Foreign body Mouth exam: Other (dry oral mucosa). negative: Drooling, Laceration, Muffled voice, Tongue elevation Throat exam: Normal inspection - Neck Neck exam: Normal inspection. negative: Meningismus, Tenderness - Respiratory Respiratory exam: Normal lung sounds bilaterally. negative: Accessory muscle use, Rales, Respiratory distress, Rhonchi, Stridor - Cardiovascular Cardiovascular Exam: Regular rate, Normal rhythm, Normal heart sounds. negative : JVD Peripheral Pulses: 2+: Radial (R), Radial (L) - GI/Abdominal GI/Abdominal exam: Soft. negative: Diminished bowel sounds, Distended, Hypoactive bowel sounds, Rebound, Tenderness - Rectal Rectal exam: Deferred - exam: Deferred - Extremities Extremities exam: Normal inspection. negative: Calf tenderness, Pedal edema, Tenderness - Back Back exam: Denies: CVA tenderness (R), CVA tenderness (L) - Neurological Neurological exam: Alert, CN II-XII intact. negative: Motor sensory deficit - Psychiatric Psychiatric exam: Normal affect, Normal mood - Skin Skin exam: Normal color, Warm. negative: Abrasion Type of lesion: negative: abrasion Assessment and Plan - Assessment and Plan (1) Sepsis Current Visit: Yes Status: Acute Base Code: A41.9 - SEPSIS, UNSPECIFIED ORGANISM (2) UTI (urinary tract infection) Current Visit: Yes Status: Acute Qualifiers: Urinary tract infection type: acute cystitis Hematuria presence: with hematuria Qualified Code(s): N30.01 - Acute cystitis with hematuria Base Code: N39.0 - URINARY TRACT INFECTION, SITE NOT SPECIFIED (3) Hyponatremia Current Visit: Yes Status: Acute Base Code: E87.1 - HYPO-OSMOLALITY AND HYPONATREMIA (4) Thrombocytopenia Current Visit: Yes Status: Acute Base Code: D69.6 - THROMBOCYTOPENIA, UNSPECIFIED (5) Full code status Current Visit: Yes Status: Acute Base Code: Z78.9 - OTHER SPECIFIED HEALTH STATUS - Disposition Disposition: Patient had fever spike and was tachycardic last night. Tylenol, 1 liter bolus given and improved. Plts dropped to 41 this am. PBS still pending. Results - Labs Result Diagrams: 04/23/17 06:17 04/23/17 06:17 Labs Last 24 Hours: Laboratory Results - last 24 hr 04/22/17 04/23/17 04/23/17 08:43 06:17 07:45 PT 11.0 INR 1.02 Fibrinogen 438.1 H D-Dimer 10.96 H POC Glucose 121 H Influenza Virus (PCR) Not detected Specimen Comment Nasopharyngeal 04/24/17 07:30 PT INR Fibrinogen D-Dimer POC Glucose 83 Influenza Virus (PCR) Specimen Comment DVT/PE Assessment - Risk for VTE Risk for VTE: No Risk Level: Low Risk Assessment Date: 04/22/17 Risk Assessment Time: 08:46 VTE Orders Placed or Will Be Placed: No VTE Reason for No Prophylaxis: Contraindicated (pts platelets dropping) - Active Medicaitons Current Medications: Current Medications Acetaminophen (Tylenol 500mg Tab) 1,000 mg PO Q6H PRN PRN Reason: PAIN/TEMP Last Admin: 04/23/17 22:23 Dose: 1,000 mg Albuterol Sulfate () 2.5 mg INH RESP.Q4H.WA PRN PRN Reason: DIFFICULTY IN BREATHING Last Admin: 04/24/17 07:02 Dose: 2.5 mg Sodium Chloride () 1,000 mls @ 125 mls/hr IV .Q8H PRN PRN Reason: LARGE VOLUME IV Last Admin: 04/23/17 22:22 Dose: 125 mls/hr Vancomycin HCl 1,000 mg/ (Sodium Chloride) 250 mls @ 250 mls/hr IVPB Q8H [facility] Stop: 04/28/17 18:01 Last Infusion: 04/24/17 03:30 Dose: Infused Ceftriaxone Sodium 2 gm/ (Sodium Chloride) 100 mls @ 200 mls/hr IVPB Q12H [facility] Stop: 04/27/17 22:01 Last Infusion: 04/24/17 00:38 Dose: Infused Ibuprofen (Motrin 600mg) 600 mg PO Q6H PRN PRN Reason: Pain - Moderate (5-7) Last Admin: 04/23/17 17:55 Dose: 600 mg Pantoprazole Sodium (Protonix) 40 mg PO DAILYAC [facility] Last Admin: 04/24/17 06:53 Dose: 40 mg Temazepam (Restoril) 30 mg PO QHS [facility] Last Admin: 04/23/17 22:23 Dose: 15 mg Venlafaxine HCl (Effexor Xr) 37.5 mg PO DAILY [facility] Last Admin: 04/23/17 09:45 Dose: 37.5 mg AMI Plan - Labs Result Diagrams: 04/23/17 06:17 04/23/17 06:17
[2017-04-24] MEDS: VENLAFAXINE ER 37.5 MG CAPSULE PO SCH (09:32)
[2017-04-24 10:03] LABS: HEMATOCRIT 37.8 % (35.0-47.0); HEMOGLOBIN 12.5 gm/dl (11.6-16.0); MEAN CELL VOLUME 79.4 fl (81-97); MEAN CORPUSCULAR HEMOGLOBIN 26.3 pg (27-33); MEAN CORPUSCULAR HGB CONC 33.1 g/dl (32-36); MEAN PLATELET VOLUME 12.6 fl (7.4-10.4); RED BLOOD COUNT 4.76 M/uL (3.80-5.40); WHITE BLOOD COUNT W/O DIFF 7.2 K/uL (4.2-12.2)
[2017-04-24] MEDS: ACETAMINOPHEN 500 MG TABLET PO PRN (10:18)
[2017-04-24 10:40] LABS: PLATELET COUNT 42 K/uL (130-400)
[2017-04-24 10:50] LABS: PLATELET ESTIMATE DECREASED (NORMAL)
[2017-04-24] MEDS: CEFTRIAXONE SODIUM 2 GM in 0.9 % SODIUM CHLORIDE 100ML 100 ML IVPB SCH (11:42)
[2017-04-24] MEDS: 0.9 % SODIUM CHLORIDE 1000ML 1,000 ML IV PRN (12:47)
[2017-04-24] MEDS ORDERED: POTASSIUM CHLORIDE 40 MEQ/15ML 40 MEQ/15 ML ML PO ONE (13:15)
[2017-04-24] MEDS ORDERED: SOD CHLOR 0.9% WITH KCL 40MEQ 40 MEQ/1,000 ML IV.SOLN IV ONE (13:18)
[2017-04-24] MEDS ORDERED: POTASSIUM CHLORIDE 20 MEQ/15ML CUP PO ONE (14:00)
[2017-04-24 17:09] LABS: HEP A AB IGM Nonreactive (Nonreactive); HEPATITIS B CORE ANTIBODY,IGM Nonreactive (Nonreactive); HEPATITIS B SURFACE ANTIGEN Nonreactive (Nonreactive); HEPATITIS C VIRUS ANTIBODY Nonreactive (Nonreactive)
--- NOTE | 2017-04-25 08:35 | Discharge Summary ---
Providers Discharge Summary Date: 04/25/17 Date of admission: 04/21/17 22:54 Attending physician: Herrera Cuveas Physical Exam - Vital Signs Vital Signs: Vital Signs - Last 24 Hrs Temp Pulse Pulse Resp BP Pulse Ox 04/24/17 17:10 80 18 100 04/24/17 12:43 72 20 100 04/24/17 09:07 97.7 F 76 16 128/72 96 - General General Appearance: Alert, Oriented x3, Cooperative, No acute distress, Other ( appears ome lethargic with halting ) Limitations: Other (answers questions with nonspecific answers) - Head Head exam: Atraumatic, Normocephalic, Normal inspection Head exam detail: negative: Abrasion, Contusion, Ayala's sign, General tenderness, Hematoma, Laceration - Eye Eye exam: Normal appearance, PERRL. negative: Conjunctival injection, Periorbital swelling, Periorbital tenderness, Scleral icterus - ENT Ear exam: negative: Auricular hematoma, Auricular trauma Nasal Exam: negative: Active bleeding, Discharge, Dried blood, Foreign body Mouth exam: Other (dry oral mucosa). negative: Drooling, Laceration, Muffled voice, Tongue elevation Throat exam: Normal inspection - Neck Neck exam: Normal inspection. negative: Meningismus, Tenderness - Respiratory Respiratory exam: Normal lung sounds bilaterally. negative: Accessory muscle use, Rales, Respiratory distress, Rhonchi, Stridor - Cardiovascular Cardiovascular Exam: Regular rate, Normal rhythm, Normal heart sounds. negative : JVD Peripheral Pulses: 2+: Radial (R), Radial (L) - GI/Abdominal GI/Abdominal exam: Soft. negative: Diminished bowel sounds, Distended, Hypoactive bowel sounds, Rebound, Tenderness - Rectal Rectal exam: Deferred - exam: Deferred - Extremities Extremities exam: Normal inspection. negative: Calf tenderness, Pedal edema, Tenderness - Back Back exam: Denies: CVA tenderness (R), CVA tenderness (L) - Neurological Neurological exam: Alert, CN II-XII intact. negative: Motor sensory deficit - Psychiatric Psychiatric exam: Normal affect, Normal mood - Skin Skin exam: Normal color, Warm. negative: Abrasion Type of lesion: negative: abrasion Hospitalization - Hospitalization Admission Diagnosis: Altered Mental Status. Dehydration/OLGA. UTI. Generalized Weakness - Problem List/Discharge Diagnosis (1) Sepsis Plan: - pt was febrile and tachycardic last night, elevated WBCs, trace leukocyte esterase, wbc 10-15 - CXR - negative, CT head negative, UDS negative - urine cultures pending, blood cultures negative x 1 day, influenza A/B rapid negative - started patient on: Ceftriaxone 2gm Q12H, Vancomycin pharmacy dosing to be d/ c, Tylenol PRN - continue fluids Nacl 0.9% @ 125mL/hr, got 1 liter bolus last night around 3 am. - telemetry monitoring, CBG-POC Q12H, I/Os Status: Acute Base Code: A41.9 - SEPSIS, UNSPECIFIED ORGANISM (2) UTI (urinary tract infection) Plan: - pt on Vancomycin/Ceftriaxone IV - will d/c Vancomycin today. Status: Acute Discharge Diagnosis: Urinary tract infection type: acute cystitis Hematuria presence: with hematuria Qualified Code(s): N30.01 - Acute cystitis with hematuria Base Code: N39.0 - URINARY TRACT INFECTION, SITE NOT SPECIFIED (3) Hyponatremia Plan: - likely as a result of hypovolemia due to sepsis or medication. - Na 133 --> 139, cont to follow labs. Cont Iv fluid repletion Status: Acute Base Code: E87.1 - HYPO-OSMOLALITY AND HYPONATREMIA (4) Thrombocytopenia Plan: - plts 97 --> 54 --> 41 - fibrinogen 438, PT/INR 05/21.02, awaiting PBS - no active bleeding and no other etiologies identified. - will repeat am labs and transfuse platelets if <30k or active bleeding. - cont to hold antiplatelet and anticoagulation Status: Acute Base Code: D69.6 - THROMBOCYTOPENIA, UNSPECIFIED (5) Full code status Plan: FULL CODE Status: Acute Base Code: Z78.9 - OTHER SPECIFIED HEALTH STATUS - Disposition Patient had fever spike and was tachycardic last night. Tylenol, 1 liter bolus given and improved. Plts dropped to 41 this am. PBS still pending. - Hospitalization Course Disposition: Acute Care Hospital Transfer Hospital Course: 77 y/o female who presented 04/22 after being stopped by the police for erratic driving. She was confused onarrival to the ED and appeared to be dehydrated and labs showed a UTI. She was started on antibiotics IV and on day #2 of admission the patient became febrile, tachycardic, and had decline in platelet count. She was started on broad spectrum antibiotics Vancomycin/Ceftriaxone pending urine and blood cultures. Day#2 - the patient's mentation improved however we noted a precipitous decline in her platelet count from 97-->54-->41. Coagulation panel, hepatic functional panel and tox screen, influenza a/b rapid antigen were all negative and there was clear etiology. She was maintained on IV abx, IV fluids and all anticoagulants were held. Day#3 - patient's repeat labs indicated platelets stable in the 40s but hypokalemia 2.9 with 80 meq KCL replaced. In addition the patient was noted to be hypocalcemic 7.7. She is hemodynamically stable and does not appear to be in acute distress but considering these ongoing metabolic derangements with no clear etiology and labs pending the decision was made to transfer the patient to [facility] for closer observation and MICU admission if required. I discussed with Dr. Davis (D) service hospitalist and he is willing to accept the patient on the service. Procedures: Cardiology Procedures 04/23/17 20:26 Echo W/CF & Cardiac Doppler ONCE 04/23/17 20:46 EKG NOW 04/23/17 20:47 Commercial Insulator .Continuous Abnormal Labs: Abnormal Lab Results 04/22/1704/22/04/22/17 Range/Units 06:00 06:10 16:49 MCV 80.8 L (81-97) fl MCH 26.7 L (27-33) pg RDW 14.8 H (11.5-14.5) % Plt Count 54 L (130-400) K/uL MPV 11.3 H (7.4-10.4) fl Neutrophils % 85.0 H (47-80) % Band Neutrophils % (0-5) % Lymphocytes % 4.3 L (16-45) % Monocytes % 10.0 H (0-9) % Lymphocytes 4.0 L (16-45) % Monocytes 11.0 H (0-9) % Fibrinogen (157-408) mg/dL D-Dimer (0-0.59) mg/L FEU Potassium (3.4-4.5) mmol/L Carbon Dioxide (22-29) mmol/L POC Glucose 136 H (70-110) mg/dL Random Glucose (74-109) mg/dL Calcium (8.8-10.2) mg/dL Total Protein 6.0 L (6.6-8.7) g/dL Albumin 3.0 L (4.0-5.0) g/dL 04/23/17 04/23/17 04/23/17 Range/Units 06:17 06:17 06:17 MCV 80.2 L (81-97) fl MCH 26.1 L (27-33) pg RDW 14.8 H (11.5-14.5) % Plt Count 41 L* (130-400) K/uL MPV 13.0 H (7.4-10.4) fl Neutrophils % (47-80) % Band Neutrophils % 12.0 H (0-5) % Lymphocytes % (16-45) % Monocytes % (0-9) % Lymphocytes 10.0 L (16-45) % Monocytes (0-9) % Fibrinogen 438.1 H (157-408) mg/dL D-Dimer 10.96 H (0-0.59) mg/L FEU Potassium 2.9 L* (3.4-4.5) mmol/L Carbon Dioxide 19.0 L (22-29) mmol/L POC Glucose (70-110) mg/dL Random Glucose 143 H (74-109) mg/dL Calcium 7.7 L (8.8-10.2) mg/dL Total Protein (6.6-8.7) g/dL Albumin (4.0-5.0) g/dL 04/23/17 04/24/17 04/24/17 Range/Units 07:45 09:45 11:30 MCV 79.4 L (81-97) fl MCH 26.3 L (27-33) pg RDW 15.0 H (11.5-14.5) % Plt Count 42 L* (130-400) K/uL MPV 12.6 H (7.4-10.4) fl Neutrophils % (47-80) % Band Neutrophils % 14.0 H (0-5) % Lymphocytes % (16-45) % Monocytes % (0-9) % Lymphocytes 10.0 L (16-45) % Monocytes 11.0 H (0-9) % Fibrinogen (157-408) mg/dL D-Dimer (0-0.59) mg/L FEU Potassium (3.4-4.5) mmol/L Carbon Dioxide (22-29) mmol/L POC Glucose 121 H 124 H (70-110) mg/dL Random Glucose (74-109) mg/dL Calcium (8.8-10.2) mg/dL Total Protein (6.6-8.7) g/dL Albumin (4.0-5.0) g/dL 04/24/17 Range/Units 17:05 MCV (81-97) fl MCH (27-33) pg RDW (11.5-14.5) % Plt Count (130-400) K/uL MPV (7.4-10.4) fl Neutrophils % (47-80) % Band Neutrophils % (0-5) % Lymphocytes % (16-45) % Monocytes % (0-9) % Lymphocytes (16-45) % Monocytes (0-9) % Fibrinogen (157-408) mg/dL D-Dimer (0-0.59) mg/L FEU Potassium (3.4-4.5) mmol/L Carbon Dioxide (22-29) mmol/L POC Glucose 114 H (70-110) mg/dL Random Glucose (74-109) mg/dL Calcium (8.8-10.2) mg/dL Total Protein (6.6-8.7) g/dL Albumin (4.0-5.0) g/dL Condition at Discharge: (2) Stable Discharge Medications - Discharge Medications Home Medications: Ambulatory Orders Ibuprofen [Motrin 400Mg] 400 mg PO Q8H PRN #14 tablet 09/16/15 [Last Taken Unknown] Alirocumab [Praluent Pen] 75 mg SQ pen.[email or web address] 06/05/16 [Last Taken Unknown] Minocycline HCl 50 mg PO DAILY #60 11/14/16 [Last Taken Unknown] Temazepam 30 mg PO QHS 04/22/17 [Last Taken Unknown] Discharge Plan - Discharge Instructions Quality Measures - Quality Measures Quality Measures: Advance Directives, Documentation of Current Medications in Medical Record, Elder Maltreatment Screen and Follow-Up Plan, Screening for High Blood Pressure and F/U Documented - Current Medications Quality Measure: Measure #130: Documentation of Current Medications Documentation of Current Medications: <Current Medications Documented/Reviewed> [[id number]] - Blood Pressure Screening Quality Measure: Screening for High Blood Pressure and Follow-Up Documented Does Patient Have Any of the Following: No Blood Pressure Classification: Pre-Hypertensive BP Reading Systolic Measurement: 129 Diastolic Measurement: 66 Screening for High Blood Pressure: < Pre-Hypertensive BP, F/U Documented > [ [id number]] Pre-Hypertensive Follow-up Interventions: Follow-up with rescreen every year., Lifestyle modifications. Lifestyle Modification: Dietary Approaches to Stop Hypertension (DASH) Eating Plan - Advance Directives Quality Measure: Measure #47: Care Plan Advance Directives Established: Yes (REC.D TODAY) Advance Directives Information Provided To Patient: No Advance Directives on File: No Living Will: No Power of Electronic Warfare Linguist: No Advance Care Planning: <Care Plan/Decision Maker Documented; Discussed & Documented> [7113F] - Elder Abuse Suspicion Index Screening: Elder Abuse Suspicion Index Screening Rely on people for bathing, dressing, shopping, banking, etc: No Prevented from getting food, clothes, medication, etc: No Made to feel shamed or threatened by someone: No Forced to sign papers or use money against will: No Feel afraid, touched in ways not wanted or hurt physically: No Poor eye contact, withdrawn, malnourished, cuts or bruises: No Screening Result: Negative result EASI Reference Information: Dalton SANTOS, [place] C, Nallely D, Radha M.Development and validation of a tool to assist physicians identification of elder abuse: The Elder Abuse Suspicion Index (EASI ). Journal of Elder Abuse and Neglect, 2008; 20 (3): 276-300. - Elder Maltreatment Screen Quality Measures: Elder Maltreatment Screen and Follow-Up Plan Elder Maltreatment Screen: <Negative, No Follow-Up Plan Required> [I2922]
== END 2017-04-24 17:30 | disposition short-term general hospital (02) | DRG 872 ==
LOC: ER 19:02 → MEDSURG 22:54
PROVIDERS: ADMIT Internal Medicine; ATTEND Internal Medicine
DX: R41.82 Altered mental status, unspecified (principal); E87.1 Hypo-osmolality and hyponatremia; A41.9 Sepsis, unspecified organism; Z78.9 Other specified health status; N39.0 Urinary tract infection, site not specified; B95.2 Enterococcus as the cause of diseases classified elsewhere; D69.6 Thrombocytopenia, unspecified; E83.51 Hypocalcemia; R50.9 Fever, unspecified; Z79.899 Other long term (current) drug therapy; Z95.810 Presence of automatic (implantable) cardiac defibrillator
CPT/HCPCS: 99285 ×2; 96365; 96361; 82140; 84484; 80053; 81001; 84443; 80305; 85027; 71010; 70450; 93005; 93010; G0480 ×3; 36416; 80048; 80076; 80202; 80320; 80329; 82948; 83735; 84100; 85379; 85384; 85610; 85730; 86705; 86803; 87040; 87340; 87400; 94640; 99223; 99233; 99239; J7030; J7050; J7613